=== PATIENT | female | born 1990 | race Caucasian/White ===

== ENCOUNTER 2017-06-21 09:32 | Emergency (ER) | payer BC ==
[2017-02-13 05:47] VITALS: Ht 154.9 cm; Wt 102.5 kg
[~2017-06-21] VITALS: Ht 154.9 cm; Wt 102.5 kg
[~2017-06-21 09:32] MED LIST: ACE3 PO; B12/1TAB3 PO; IBU800 PO; IBUP800T37 PO; LOR5/325 PO; MECL25TA9 PO; MULT-865 PO; NO RTN MEDS; OMEP-125 PO; ONDA4TAB PO; PREN-127 PO; ZPACK
[2017-06-21] MEDS ORDERED: NS(*) 0.9% 1000 ML BAG 1,000 ML IV ONE (09:58)
--- NOTE | 2017-06-21 09:58 | ER Report ---
History and Physical Time Seen By MD: 09:57 Hx. of Stated Complaint: uti x 4 months. today has lower back pain, abd pain, nausea HPI/ROS CHIEF COMPLAINT: Back pain HISTORY OF PRESENT ILLNESS: Bilateral lower back pain 4 months states she has been treated for UTI with 4 different antibiotics is unsure if it resolved feeling of incomplete evacuation of urine. No hematuria. Occasional flank pain bilateral abdominal pain no prior kidney stones. She is and is having problems with her lower back and abdomen since delivery of the baby this is her 2nd vaginal delivery. REVIEW OF SYSTEMS: Constitutional: No fever, no chills. Eyes: No discharge. ENT: No sore throat. Cardiovascular: No chest pain, no palpitations. Respiratory: No cough, no shortness of breath. Gastrointestinal: No abdominal pain, no vomiting. Genitourinary: No hematuria. Musculoskeletal: No back pain. Skin: No rashes. Neurological: No headache. Allergies: Coded Allergies: No Known Drug Allergies (Verified , 06/21/17) Home Meds Discontinued Reported Medications B12/Levomefolate Calcium/B-6 (FOLBIC RF TABLET) 1 Each Tablet, 800 EACH PO DAILY 04/19/17 Hx Smoking: No Smoking Status: Never Smoker Exposure to Second Hand Smoke?: No Hx Substance Use Disorder: No Hx Alcohol Use: Yes (OCC) Constitutional Vital Sign - Last 24 Hours 06/21/17 06/21/17 06/21/17 06/21/17 09:43 09:48 09:52 10:00 Temp 97.6 Pulse 69 62 Resp 14 B/P (MAP) 103/64 103/64 (77) 97/64 (75) Pulse Ox 95 95 O2 Delivery Room Air 06/21/17 06/21/17 06/21/17 06/21/17 10:02 10:12 10:22 10:30 Pulse 57 60 67 B/P (MAP) 124/68 (86) Pulse Ox 94 94 94 06/21/17 06/21/17 06/21/17 06/21/17 10:32 10:37 11:00 11:30 Pulse 54 63 B/P (MAP) 117/80 (92) 114/77 (89) Pulse Ox 94 94 06/21/17 06/21/17 12:00 12:07 Pulse 55 B/P (MAP) 112/71 (85) Pulse Ox 93 Intake and Output 06/21/17 06/21/17 06/22/17 15:00 23:00 07:00 Intake Total 1000 ml Balance 1000 ml Physical Exam General Appearance: The patient is alert, has no immediate need for airway protection and no signs of toxicity. Not ill-appearing does not appear intoxicated Eyes: Pupils equal and round no pallor or injection. ENT, Mouth: Mucous membranes are moist. Respiratory: There are no retractions, lungs are clear to auscultation. Cardiovascular: Regular rate and rhythm. No murmurs gallops or rubs Gastrointestinal: Abdomen is soft and non tender, no masses, bowel sounds normal. No CVA tenderness bilaterally Neurological: Normal exam Skin: Warm and dry, no rashes. Musculoskeletal: Neck is supple non tender. Lumbosacral muscles are firm and mildly tender to palpation Extremities are nontender, nonswollen and have full range of motion. No edema DIFFERENTIAL DIAGNOSIS: After history and physical exam differential diagnosis was considered for retained kidney stone lumbosacral strain lumbosacral syndrome muscle spasm dehydration I disturbance no signs of sciatica radiculopathy no signs of acute back trauma or disc disease Medical Decision Making Data Points Result Diagram: 06/21/17 1023 06/21/17 1023 Laboratory Hematology Test 06/21/17 09:44 06/21/17 10:23 Urine Color Yellow Urine Clarity Clear Urine pH 6.0 pH (4.8-9.5) Urine Specific [place] 1.015 Urine Protein Negative mg/dL (NEGATIVE) Urine Glucose (UA) Negative mg/dL (NEGATIVE) Urine Ketones Negative mg/dL (NEGATIVE) Urine Blood Large (NEGATIVE) Urine Nitrite Negative (NEGATIVE) Urine Bilirubin Negative (NEGATIVE) Urine Urobilinogen Negative mg/dL (0.2-1.9) Urine Leukocyte Esterase Negative (NEGATIVE) Urine RBC 4 /HPF (0-2/HPF) Urine WBC <1 /HPF (0-5/HPF) Urine Squamous Epithelial Cells Many /LPF (</=FEW) Urine Bacteria Negative /HPF (NONE-FEW) Urine Mucus None /HPF (NONE-FEW) Red Blood Count 5.62 M/uL (4.17-5.56) Mean Corpuscular Volume 78.2 fL (80.0-96.0) Mean Corpuscular Hemoglobin 25.8 pg (26.0-33.0) Mean Corpuscular Hemoglobin Concent 33.0 g/dL (32.0-36.0) Red Cell Distribution Width 13.8 % (11.5-14.5) Mean Platelet Volume 7.0 fL (7.2-11.1) Neutrophils (%) (Auto) 51.3 % (39.4-72.5) Lymphocytes (%) (Auto) 27.7 % (17.6-49.6) Monocytes (%) (Auto) 8.2 % (4.1-12.4) Eosinophils (%) (Auto) 10.0 % (0.4-6.7) Basophils (%) (Auto) 2.8 % (0.3-1.4) Nucleated RBC Relative Count (auto) 0.0 /100WBC Neutrophils # (Auto) 3.0 K/uL (2.0-7.4) Lymphocytes # (Auto) 1.6 K/uL (1.3-3.6) Monocytes # (Auto) 0.5 K/uL (0.3-1.0) Eosinophils # (Auto) 0.6 K/uL (0.0-0.5) Basophils # (Auto) 0.2 K/uL (0.0-0.1) Nucleated RBC Absolute Count (auto) 0.00 K/uL Sodium Level 141 mmol/L (137-145) Potassium Level 4.1 mmol/L (3.5-5.0) Chloride Level 103 mmol/L (98-107) Carbon Dioxide Level 26 mmol/L (22-31) Blood Urea Nitrogen 11 mg/dl (7-18) Creatinine 0.90 mg/dl (0.52-1.04) Glomerular Filtration Rate Calc > 60.0 Random Glucose 81 mg/dl (75-110) Calcium Level 9.1 mg/dl (8.4-10.2) Total Bilirubin 0.6 mg/dl (0.2-1.3) Aspartate Amino Transf (AST/SGOT) 27 U/L (0-35) Alanine Aminotransferase (ALT/SGPT) 40 U/L (0-56) Alkaline Phosphatase 104 U/L (0-126) Total Protein 7.6 gm/dl (6.3-8.2) Albumin 4.0 g/dl (3.5-5.0) Lipase 53 U/L (23-300) Human Chorionic Gonadotropin, Qual Negative (NEGATIVE) Chemistry Test 06/21/17 09:44 06/21/17 10:23 Urine Color Yellow Urine Clarity Clear Urine pH 6.0 pH (4.8-9.5) Urine Specific [place] 1.015 Urine Protein Negative mg/dL (NEGATIVE) Urine Glucose (UA) Negative mg/dL (NEGATIVE) Urine Ketones Negative mg/dL (NEGATIVE) Urine Blood Large (NEGATIVE) Urine Nitrite Negative (NEGATIVE) Urine Bilirubin Negative (NEGATIVE) Urine Urobilinogen Negative mg/dL (0.2-1.9) Urine Leukocyte Esterase Negative (NEGATIVE) Urine RBC 4 /HPF (0-2/HPF) Urine WBC <1 /HPF (0-5/HPF) Urine Squamous Epithelial Cells Many /LPF (</=FEW) Urine Bacteria Negative /HPF (NONE-FEW) Urine Mucus None /HPF (NONE-FEW) White Blood Count 5.9 k/uL (4.5-11.0) Red Blood Count 5.62 M/uL (4.17-5.56) Hemoglobin 14.5 g/dL (12.0-16.0) Hematocrit 44.0 % (34.0-47.0) Mean Corpuscular Volume 78.2 fL (80.0-96.0) Mean Corpuscular Hemoglobin 25.8 pg (26.0-33.0) Mean Corpuscular Hemoglobin Concent 33.0 g/dL (32.0-36.0) Red Cell Distribution Width 13.8 % (11.5-14.5) Platelet Count 355 K/uL (150-450) Mean Platelet Volume 7.0 fL (7.2-11.1) Neutrophils (%) (Auto) 51.3 % (39.4-72.5) Lymphocytes (%) (Auto) 27.7 % (17.6-49.6) Monocytes (%) (Auto) 8.2 % (4.1-12.4) Eosinophils (%) (Auto) 10.0 % (0.4-6.7) Basophils (%) (Auto) 2.8 % (0.3-1.4) Nucleated RBC Relative Count (auto) 0.0 /100WBC Neutrophils # (Auto) 3.0 K/uL (2.0-7.4) Lymphocytes # (Auto) 1.6 K/uL (1.3-3.6) Monocytes # (Auto) 0.5 K/uL (0.3-1.0) Eosinophils # (Auto) 0.6 K/uL (0.0-0.5) Basophils # (Auto) 0.2 K/uL (0.0-0.1) Nucleated RBC Absolute Count (auto) 0.00 K/uL Glomerular Filtration Rate Calc > 60.0 Calcium Level 9.1 mg/dl (8.4-10.2) Total Bilirubin 0.6 mg/dl (0.2-1.3) Aspartate Amino Transf (AST/SGOT) 27 U/L (0-35) Alanine Aminotransferase (ALT/SGPT) 40 U/L (0-56) Alkaline Phosphatase 104 U/L (0-126) Total Protein 7.6 gm/dl (6.3-8.2) Albumin 4.0 g/dl (3.5-5.0) Lipase 53 U/L (23-300) Human Chorionic Gonadotropin, Qual Negative (NEGATIVE) Urinalysis Test 06/21/17 09:44 Urine Color Yellow Urine Clarity Clear Urine pH 6.0 pH (4.8-9.5) Urine Specific [place] 1.015 Urine Protein Negative mg/dL (NEGATIVE) Urine Glucose (UA) Negative mg/dL (NEGATIVE) Urine Ketones Negative mg/dL (NEGATIVE) Urine Blood Large (NEGATIVE) Urine Nitrite Negative (NEGATIVE) Urine Bilirubin Negative (NEGATIVE) Urine Urobilinogen Negative mg/dL (0.2-1.9) Urine Leukocyte Esterase Negative (NEGATIVE) Urine RBC 4 /HPF (0-2/HPF) Urine WBC <1 /HPF (0-5/HPF) Urine Squamous Epithelial Cells Many /LPF (</=FEW) Urine Bacteria Negative /HPF (NONE-FEW) Urine Mucus None /HPF (NONE-FEW) EKG/Imaging Imaging Negative CT abdomen and pelvis results discussed with the patient and all questions answered and understood. Post void residual 200 mL's by bladder scan. ED Course/Re-evaluation ED Course Plan care agreed-upon prior to orders placed Re-evaluation The time stamp all results discussed all questions answered and understood, noconcerns or complaints at this time. Home care follow-up and reasons to return discussed Decision to Disposition Date: Jun 21, 2017 Decision to Disposition Time: 12:40 Depart Departure Latest Vital Signs Vital Signs Date Time Temp Pulse Resp B/P (MAP) Pulse Ox O2 Delivery O2 Flow Rate FiO2 06/21/17 12:07 55 93 06/21/17 12:00 112/71 (85) 06/21/17 09:43 97.6 14 Room Air Impression: Primary Impression: Lumbar muscle pain Condition: Improved Disposition: HOME OR SELF-CARE New Scripts Ibuprofen (IBUPROFEN) 800 Mg Tablet 1 TAB PO Q8H for PAIN for 7 Days, #20 TAB Prov: CONOR SHARMA MD 06/21/17 Cyclobenzaprine Hcl (CYCLOBENZAPRINE HCL) 10 Mg Tablet 10 MG PO Q8H Y for MUSCLE SPASMS, #20 TAB 0 Refills Prov: CONOR SHARMA MD 06/21/17 Patient Instructions: Acute Low Back Pain (ED) CONOR SHARMA MD Jun 21, 2017 09:57
[2017-06-21 10:41] LABS: PLATELET COUNT, AUTOMATED 355 K/uL (150-450)
--- NOTE | 2017-06-21 11:41 | RADIOLOGY IMAGING REPORT ---
FACILITY: [facility] PATIENT NAME: Jaja Restrepo : 1990 MR: [id number] V: [id number] EXAM DATE: ORDERING PHYSICIAN: CONOR SHARMA TECHNOLOGIST: Location[place] [facility] [place] Patient: Jaja Restrepo : 1990 Visit/Account:[id number] Date of Sevice: 06/21/2017 ABDOMEN/PELVIS W/O CONTRAST HISTORY: renal stone TECHNIQUE: Axial images were obtained through the abdomen and pelvis without intravenous contrast . One of the following dose optimization techniques was utilized in the performance of this exam: autom ated exposure control; adjustment of the mA and/or kv according to patient size; or use of iterative reconstruction technique. Specific details can be referenced in the facility's radiology CT exam oper ational policy. CONTRAST: None COMPARISON: None. FINDINGS: Visualized lung bases: Negative. Hepatobiliary: Negative. Spleen: Negative. Adrenals: Negative. Pancreas: Negative. Kidneys/ureters/bladder: No radiopaque urinary tract calculus. No hydronephrosis. Bowel/peritoneum/mesentery: Normal appendix. Vessels: Negative. Lymph nodes: Negative. Pelvic genitourinary: Negative. Bones/body wall: Negative. Other findings: None significant IMPRESSION: 1. Negative for a radiopaque urinary tract calculus or hydronephrosis. 2. Normal appendix. No other acute inflammatory process identified. Report Dictated By: Washington Goldman MD at 06/21/2017 11:34 AM Report E-Signed By: Washington Goldman MD at 06/21/2017 11:36 AM [id number]
[2017-06-21 12:32] VITALS: BP 122/84
[2017-06-21] MEDS ORDERED: CYCL10TA29 PO (12:43)
[2017-06-21] MEDS ORDERED: IBUP800T37 PO (12:43)
== END 2017-06-21 12:57 | disposition home or self-care (01) ==
LOC: ER 09:33
DX: M79.1 Myalgia (principal)
CPT/HCPCS: 74176; 81001; 83690; 84703; 85025; 87088; 96360; 96361; 99284; J7030; 82040; 82247; 82310; 82374; 82435; 82565; 82947; 84075; 84132; 84155; 84295; 84450; 84460; 84520

== ENCOUNTER → 2017-06-28 | Outpatient (CLI) | payer BC ==
[2017-02-13 05:47] VITALS: BMI 46.5
[~2017-06-28] MED LIST changes: +CYCL10TA29 PO; +SINCALIDE 5 MCG VIAL INJ ONE; +WATER STERILE(*) 10 ML VIAL 10 ML ONE
--- NOTE | 2017-06-28 17:43 | RADIOLOGY IMAGING REPORT ---
FACILITY: [facility] PATIENT NAME: Jaja Restrepo : 1990 MR: [id number] V: [id number] EXAM DATE: ORDERING PHYSICIAN: MILLI ESQUEDA TECHNOLOGIST: [facility] Patient: Jaja Restrepo : 1990 Visit/Account:[id number] Date of Sevice: 06/28/2017 HIDA W/CCK Indication: 27-year-old female with right upper quadrant pain. Evaluate gallbladder. Comparison studies: CT of the abdomen from June 21, 2017. Procedure: Following the intravenous injection of technetium 99m labeled mebrofenin 0.8 mCi imaging w as performed over the abdomen for 46 minutes. Afterwards the patient was injected with 4.2 micrograms of intravenous CCK and the gallbladder ejection fraction was calculated in standard fashion. Findings: After 2 minutes there was clearance of radioisotope from the blood stream. After 10 minutes there was activity in the biliary system. After 15 minutes there is activity in the bowel. After 32 minutes there was activity in the gallbladder. The gallbladder ejection fraction is 96 %. The injection of CCK did reproduce symptoms of nausea. IMPRESSION: 1. There is mildly delayed uptake of radioisotope by the gallbladder but there is normal biliary excr etion and emptying into the bowel. 2. The gallbladder ejection fraction was calculated to be 96% 12 minutes after the injection of CCK 4 .2 mCi. This ejection fraction may be considered high and could be suggestive of biliary dyskinesia. Report Dictated By: Chau Hanley MD at 06/28/2017 5:34 PM Report E-Signed By: Chau Hanley MD at 06/28/2017 5:40 PM [id number]
== END ==
LOC: NUC 08:03
PROVIDERS: ATTEND Nurse Practitioner Family
DX: R10.9 Unspecified abdominal pain (principal); R11.0 Nausea
CPT/HCPCS: 78226; A4216; A9537; J2805

== ENCOUNTER 2017-07-03 22:28 | Emergency (ER) | payer BC ==
[2017-02-13 05:47] VITALS: Wt 104.3 kg
[~2017-07-03 22:28] MED LIST changes: -SINCALIDE 5 MCG VIAL INJ ONE; -WATER STERILE(*) 10 ML VIAL 10 ML ONE
[2017-07-03] MEDS ORDERED: ONDA4TAB97 PO (22:40)
[2017-07-03] MEDS ORDERED: PROTANDEM (22:40)
--- NOTE | 2017-07-03 22:43 | ER Report ---
History and Physical Time Seen By MD: 22:37 Hx. of Stated Complaint: back pain past 4 months worse tonight and abdominal pain and nausea HPI/ROS CHIEF COMPLAINT: Back pain HISTORY OF PRESENT ILLNESS: 27-year-old female presents to the ER complaining of severe back pain. She is also complaining of abdominal pain. She was seen here approximately 10 days ago. She had a CT scan of her abdomen and pelvis which was unremarkable. She was discharged home on ibuprofen and cyclobenzaprine. Patient returns tonight with worsening back pain and abdominal pain. She has a variety of symptoms. She denies fevers. Patient is 4 months with her 2nd child. Patient thinks her chronic back pain may be from the epidural. She received. Apparently there was some pulling of the catheter for some reason. She is worried that something may have been damaged in her spine and back. She notes no radiation of the pain to her legs. She denies incontinence. Patient notes nausea and vomiting. She denies diarrhea or dysuria. REVIEW OF SYSTEMS: Respiratory: No cough, no dyspnea. Cardiovascular: No chest pain, no palpitations. Gastrointestinal: No vomiting, no abdominal pain. Musculoskeletal: As above Allergies: Coded Allergies: No Known Drug Allergies (Verified , 06/21/17) Home Meds Active Scripts Promethazine Hcl (PROMETHAZINE HCL) 25 Mg Tablet, 25 MG PO Q4H Y for NAUSEA/ VOMITING, #14 TAB Prov:SOL CASTRO DO 07/04/17 Oxycodone Hcl/Acetaminophen (PERCOCET 5-325 MG TABLET) 1 Each Tablet, 1 EACH PO Q4-6H Y for PAIN, #10 Prov:SOL CASTRO DO 07/04/17 Ibuprofen (IBUPROFEN) 800 Mg Tablet, 1 TAB PO Q8H for PAIN for 7 Days, #20 TAB Prov:CONOR SHARMA MD 06/21/17 Cyclobenzaprine Hcl (CYCLOBENZAPRINE HCL) 10 Mg Tablet, 10 MG PO Q8H Y for MUSCLE SPASMS, #20 TAB 0 Refills Prov:CONOR SHARMA MD 06/21/17 Reported Medications [protandem] No Conflict Check 07/03/17 Ondansetron Hcl (ZOFRAN) 4 Mg Tablet, 4 MG PO Q12H, TAB 07/03/17 Reviewed Nurses Notes: Yes Old Medical Records Reviewed: Yes Hx Smoking: No Smoking Status: Never Smoker Exposure to Second Hand Smoke?: No Hx Substance Use Disorder: No Hx Alcohol Use: Yes (OCC) Constitutional Vital Sign - Last 24 Hours 07/03/17 07/03/17 07/03/17 07/03/17 22:28 22:33 22:34 22:43 Temp 97.2 Pulse ??? 72 63 Resp 18 B/P (MAP) 133/76 133/76 (95) Pulse Ox 94 94 O2 Delivery Room Air 07/03/17 07/03/17 07/03/17 07/03/17 22:58 23:00 23:13 23:28 Pulse 66 53 59 B/P (MAP) 125/85 (98) Pulse Ox 92 98 95 07/03/17 07/03/17 07/03/17 07/04/17 23:30 23:35 23:50 00:00 Pulse 63 66 B/P (MAP) 113/76 (88) 108/62 (77) Pulse Ox 96 95 07/04/17 07/04/17 00:05 00:20 Pulse 62 56 Pulse Ox 96 97 Physical Exam Vital signs stable, afebrile, pulse ox normal General Appearance: The patient is alert, has no immediate need for airway protection and no current signs of toxicity. Skin warm, dry, pink, moderate distress HEENT: Pupils equal and round no injection. Oropharynx without redness or exudate, mucous members are moist Respiratory: Chest is non tender, lungs are clear to auscultation. No chest wall tenderness Cardiac: regular rate and rhythm Gastrointestinal: Abdomen is soft and non tender, no masses, bowel sounds normal. Musculoskeletal: Neck: Neck is supple and non tender. Back: There is no CVA tenderness. There is no tenderness in the midline of the lumbar spine. There is tenderness in the lumbar paraspinous musculature in the upper area of the lumbar region Extremities have full range of motion and are non tender. Negative straight- leg raise bilaterally, no edema Skin: No rashes or lesions. DIFFERENTIAL DIAGNOSIS: After history and physical exam differential diagnosis was considered for back pain including but not limited to muscular pain, herniated disc, spine fracture, intra-abdominal causes and urinary tract infection. Additionally,abdominal pain including but not limited to appendicitis, cholecystitis, gastritis and urinary tract infection. Medical Decision Making Data Points Result Diagram: 07/03/17224107/03/172241 Laboratory Hematology Test 07/03/17 22:32 07/03/17 22:42 Urine Color Yellow Urine Clarity Clear Urine pH 7.0 pH (4.8-9.5) Urine Specific [place] 1.013 Urine Protein Negative mg/dL (NEGATIVE) Urine Glucose (UA) Negative mg/dL (NEGATIVE) Urine Ketones Negative mg/dL (NEGATIVE) Urine Blood Small (NEGATIVE) Urine Nitrite Negative (NEGATIVE) Urine Bilirubin Negative (NEGATIVE) Urine Urobilinogen Negative mg/dL (0.2-1.9) Urine Leukocyte Esterase Trace (NEGATIVE) Urine RBC <1 /HPF (0-2/HPF) Urine WBC 1 /HPF (0-5/HPF) Urine Squamous Epithelial Cells Many /LPF (</=FEW) Urine Bacteria Few /HPF (NONE-FEW) Urine Mucus None /HPF (NONE-FEW) Red Blood Count 6.03 M/uL (4.17-5.56) Mean Corpuscular Volume 76.7 fL (80.0-96.0) Mean Corpuscular Hemoglobin 25.8 pg (26.0-33.0) Mean Corpuscular Hemoglobin Concent 33.7 g/dL (32.0-36.0) Red Cell Distribution Width 13.3 % (11.5-14.5) Mean Platelet Volume 7.1 fL (7.2-11.1) Neutrophils (%) (Auto) 48.1 % (39.4-72.5) Lymphocytes (%) (Auto) 37.3 % (17.6-49.6) Monocytes (%) (Auto) 8.2 % (4.1-12.4) Eosinophils (%) (Auto) 5.6 % (0.4-6.7) Basophils (%) (Auto) 0.8 % (0.3-1.4) Nucleated RBC Relative Count (auto) 0.0 /100WBC Neutrophils # (Auto) 4.0 K/uL (2.0-7.4) Lymphocytes # (Auto) 3.1 K/uL (1.3-3.6) Monocytes # (Auto) 0.7 K/uL (0.3-1.0) Eosinophils # (Auto) 0.5 K/uL (0.0-0.5) Basophils # (Auto) 0.1 K/uL (0.0-0.1) Nucleated RBC Absolute Count (auto) 0.00 K/uL Erythrocyte Sedimentation Rate 5 mm/HOUR (0-20) Sodium Level 135 mmol/L (137-145) Potassium Level 4.0 mmol/L (3.5-5.0) Chloride Level 97 mmol/L (98-107) Carbon Dioxide Level 29 mmol/L (22-31) Blood Urea Nitrogen 14 mg/dl (7-18) Creatinine 1.00 mg/dl (0.52-1.04) Glomerular Filtration Rate Calc > 60.0 Random Glucose 95 mg/dl (75-110) Calcium Level 9.1 mg/dl (8.4-10.2) Total Bilirubin 0.6 mg/dl (0.2-1.3) Aspartate Amino Transf (AST/SGOT) 21 U/L (0-35) Alanine Aminotransferase (ALT/SGPT) 35 U/L (0-56) Alkaline Phosphatase 122 U/L (0-126) C-Reactive Protein < 0.5 mg/dl (<1.0) Total Protein 7.7 gm/dl (6.3-8.2) Albumin 4.0 g/dl (3.5-5.0) Thyroid Stimulating Hormone (TSH) 4.80 uIU/ml (0.46-4.68) Chemistry Test 07/03/17 22:32 07/03/17 22:42 Urine Color Yellow Urine Clarity Clear Urine pH 7.0 pH (4.8-9.5) Urine Specific [place] 1.013 Urine Protein Negative mg/dL (NEGATIVE) Urine Glucose (UA) Negative mg/dL (NEGATIVE) Urine Ketones Negative mg/dL (NEGATIVE) Urine Blood Small (NEGATIVE) Urine Nitrite Negative (NEGATIVE) Urine Bilirubin Negative (NEGATIVE) Urine Urobilinogen Negative mg/dL (0.2-1.9) Urine Leukocyte Esterase Trace (NEGATIVE) Urine RBC <1 /HPF (0-2/HPF) Urine WBC 1 /HPF (0-5/HPF) Urine Squamous Epithelial Cells Many /LPF (</=FEW) Urine Bacteria Few /HPF (NONE-FEW) Urine Mucus None /HPF (NONE-FEW) White Blood Count 8.4 k/uL (4.5-11.0) Red Blood Count 6.03 M/uL (4.17-5.56) Hemoglobin 15.6 g/dL (12.0-16.0) Hematocrit 46.2 % (34.0-47.0) Mean Corpuscular Volume 76.7 fL (80.0-96.0) Mean Corpuscular Hemoglobin 25.8 pg (26.0-33.0) Mean Corpuscular Hemoglobin Concent 33.7 g/dL (32.0-36.0) Red Cell Distribution Width 13.3 % (11.5-14.5) Platelet Count 328 K/uL (150-450) Mean Platelet Volume 7.1 fL (7.2-11.1) Neutrophils (%) (Auto) 48.1 % (39.4-72.5) Lymphocytes (%) (Auto) 37.3 % (17.6-49.6) Monocytes (%) (Auto) 8.2 % (4.1-12.4) Eosinophils (%) (Auto) 5.6 % (0.4-6.7) Basophils (%) (Auto) 0.8 % (0.3-1.4) Nucleated RBC Relative Count (auto) 0.0 /100WBC Neutrophils # (Auto) 4.0 K/uL (2.0-7.4) Lymphocytes # (Auto) 3.1 K/uL (1.3-3.6) Monocytes # (Auto) 0.7 K/uL (0.3-1.0) Eosinophils # (Auto) 0.5 K/uL (0.0-0.5) Basophils # (Auto) 0.1 K/uL (0.0-0.1) Nucleated RBC Absolute Count (auto) 0.00 K/uL Erythrocyte Sedimentation Rate 5 mm/HOUR (0-20) Glomerular Filtration Rate Calc > 60.0 Calcium Level 9.1 mg/dl (8.4-10.2) Total Bilirubin 0.6 mg/dl (0.2-1.3) Aspartate Amino Transf (AST/SGOT) 21 U/L (0-35) Alanine Aminotransferase (ALT/SGPT) 35 U/L (0-56) Alkaline Phosphatase 122 U/L (0-126) C-Reactive Protein < 0.5 mg/dl (<1.0) Total Protein 7.7 gm/dl (6.3-8.2) Albumin 4.0 g/dl (3.5-5.0) Thyroid Stimulating Hormone (TSH) 4.80 uIU/ml (0.46-4.68) Urinalysis Test 07/03/17 22:32 Urine Color Yellow Urine Clarity Clear Urine pH 7.0 pH (4.8-9.5) Urine Specific [place] 1.013 Urine Protein Negative mg/dL (NEGATIVE) Urine Glucose (UA) Negative mg/dL (NEGATIVE) Urine Ketones Negative mg/dL (NEGATIVE) Urine Blood Small (NEGATIVE) Urine Nitrite Negative (NEGATIVE) Urine Bilirubin Negative (NEGATIVE) Urine Urobilinogen Negative mg/dL (0.2-1.9) Urine Leukocyte Esterase Trace (NEGATIVE) Urine RBC <1 /HPF (0-2/HPF) Urine WBC 1 /HPF (0-5/HPF) Urine Squamous Epithelial Cells Many /LPF (</=FEW) Urine Bacteria Few /HPF (NONE-FEW) Urine Mucus None /HPF (NONE-FEW) ED Course/Re-evaluation Clinical Indication for ER IV: Hydration, IV Access ED Course Patient was admitted to an examination room. H&P was done. The differential diagnoses was considered. On clinical examination. Patient has lack of significant clinical findings. Her overall affect seems depression in nature. I suspect the back pain is from carrying her 4-month-old infant around in [place] for her other child. She did have a mild rash on her face and I was suspicious she might have lupus. Her sedimentation rate and CRP were normal. Her white count was unremarkable. Laboratory studies for the abdomen were unremarkable. Urinalysis shows no infection or hematuria. test was negative. Patient improved with IV fluid hydration, Toradol, fentanyl and Zofran. Patient advised to follow-up with primary care physician who can evaluate her for numerous other etiologies and treat her for depression. Patient was given a prescription for Phenergan to control her nausea since. Zofran did not seem to be working. Patient was given a limited supply of Percocet for temporary pain relief She was referred to the internal medicine group. Decision to Disposition Date: Jul 04, 2017 Decision to Disposition Time: 00:11 Depart Departure Latest Vital Signs Vital Signs Date Time Temp Pulse Resp B/P (MAP) Pulse Ox O2 Delivery O2 Flow Rate FiO2 07/04/17 00:20 56 97 07/04/17 00:00 108/62 (77) 07/03/17 22:33 97.2 18 Room Air Impression: Primary Impression: Back pain Additional Impression: Nausea Condition: Improved Disposition: HOME OR SELF-CARE Referrals: YUDY PITTS MD, FARRUKH MD New Scripts Promethazine Hcl (PROMETHAZINE HCL) 25 Mg Tablet 25 MG PO Q4H Y for NAUSEA/VOMITING, #14 TAB Prov: SOL CASTRO DO 07/04/17 Oxycodone Hcl/Acetaminophen (PERCOCET 5-325 MG TABLET) 1 Each Tablet 1 EACH PO Q4-6H Y for PAIN, #10 Prov: SOL CASTRO DO 07/04/17 Patient Instructions: Chronic Back Pain (ED) Additional Instructions: Follow-up with Dr. Pitts within one week Problem Qualifiers Primary Impression: Back pain Back pain location: low back pain Chronicity: chronic Back pain laterality : unspecified Sciatica presence: without sciatica Qualified Codes: M54.5 - Low back pain; G89.29 - Other chronic pain SOL CASTRO DO Jul 03, 2017 22:43
[2017-07-03] MEDS ORDERED: NS(*) 0.9% 1000 ML BAG 1,000 ML IV ONE (22:51)
[2017-07-03] MEDS ORDERED: KETOROLAC 30 MG/ML VIAL IVP ONE (22:55)
[2017-07-03] MEDS ORDERED: PROMETHAZINE 25 MG/ML 1 ML AMP IVP ONE (22:55)
[2017-07-03] MEDS ORDERED: fentaNYL CITR 100 MCG/2 ML AMP IVP ONE (22:55)
[2017-07-03 22:58] LABS: PLATELET COUNT, AUTOMATED 328 K/uL (150-450)
[2017-07-04] VITALS: BP 108/62
[2017-07-04] MEDS ORDERED: OXYC-865 PO (00:17)
[2017-07-04] MEDS ORDERED: PROM-110 PO (00:17)
[2017-07-04] MEDS ORDERED: oxyCODONE/ACETAMIN 5/325MG TH 2 TAB/BOTTLE PO ONE (00:20)
[2017-07-04] MEDS ORDERED: PROMETHAZINE HCL 25 MG TAB TH 2 TAB/BOTTLE PO ONE (00:20)
== END 2017-07-04 00:32 | disposition home or self-care (01) ==
LOC: ER 22:54
DX: M54.5 Low back pain (principal); R11.0 Nausea
CPT/HCPCS: 81001; 84443; 85025; 85651; 86140; 96361; 96374; 96375; 99284; J1885; J2550; J3010; J7030; 82040; 82247; 82310; 82374; 82435; 82565; 82947; 84075; 84132; 84155; 84295; 84450; 84460; 84520

== ENCOUNTER → 2017-07-09 | Outpatient (CLI) | payer BC ==
[2017-02-13 05:47] VITALS: BMI 46.5
[~2017-07-09] MED LIST changes: +ALBU8.5H IH; +DIPH0.5D12 IM; +ONDA4TAB97 PO; +OXYC-865 PO; +PNEU0.5D3 IM; +PROM-110 PO; +PROTANDEM; +TRET20CR37 TP
--- NOTE | 2017-07-09 15:13 | RADIOLOGY IMAGING REPORT ---
FACILITY: [facility] PATIENT NAME: Jaja Restrepo : 1990 MR: [id number] V: [id number] EXAM DATE: ORDERING PHYSICIAN: YUDY PITTS TECHNOLOG[place]: [place] [facility] [place]aja Rest[place] : 1990 Visit/Account:[id number] Date of Sevice: 07/09/2017 Chest with lateral, two views. HISTORY: Hypoxia. COMPARISON: None. The patient's head is rotated to the left on the frontal view. Mild bronchial thickening is present bilaterally. The heart and mediastinum are unremarkable. Pulmonary vessels are unremarkable. The l ungs are otherwise clear. The pleural surfaces are unremarkable. No pneumothorax. No acute bony abno rmalities. IMPRESSION: Mild bronchial thickening. Otherwise no evidence of acute cardiopulmonary disease. Report Dictated By: Luc Jack MD at 07/09/2017 3:07 PM Report E-Signed By: Luc Jack MD at 07/09/2017 3:09 PM [id number]
== END ==
LOC: LAB 13:37
PROVIDERS: ATTEND Emergency Medicine
DX: R91.8 Other nonspecific abnormal finding of lung field (principal)
CPT/HCPCS: 36415; 71046; 83540; 83550; 84439; 84443; 84481; 86140

== ENCOUNTER 2017-07-31 09:45 | Outpatient (RCR) | payer BC ==
[2017-02-13 05:47] VITALS: BMI 46.5
--- NOTE | 2017-07-17 14:53 | PT INITIAL EVALUATION ---
MEDICAL DIAGNOSIS: back pain TREATMENT DIAGNOSIS: same, back pain with radiating pain DATE OF ONSET: 05/05/17 SUBJECTIVE: Jaja Restrepo presents to physical therapy with complaints of low back pain that started 4-5 months ago following the delivery of her 2nd child. She reports that she believed that it correlated to her delivery, however, she reports that the low back pain is getting worse and worse. Furthermore, she reports that when the pain becomes really bad is spreads from her low back and wraps around causing abdominal pain. Today, she reports the pain to be 0/ 10. She reports that when the pain comes it is very painful and rates it to be from 3-10/10. She reports that the pain is really random and does not have a pattern. She reports that the pain is better with hot water and reports the pain to be worse with bending, standing, and lying. He denies increased pain with coughing, sneezing, or straining. She denies unexplained weight loss. She denies recent accident, surgery (on back), or recent changes in bowel or bladder. However, she does report night pain. She reports that she has poor posture and she states that the pain does not seem to change with better posture. She denies any numbness or tingling or any drastic changes in strength since the low back pain started. Pain location is L3-5 facet joints. Pain scale is 0 on a ten point pain scale. REHAB PROBLEM LIST: Increased Pain Decreased ROM Decreased Strength Decreased Endurance Decreased Function PREVIOUS MEDICAL HISTORY: See EMR OCCUPATION: Homemaker OBJECTIVE: Posture: She demonstrated forward head, B rounded shoulders, and increased thoracic kyphosis. She does not appear to have a lateral shift. ROM: Trunk AROM: flexion: NIL with muscular end feel, extension: minimal restriction with painful end feel, side gliding R: minimal restriction with muscular end feel, side gliding L: NIL with muscular end feel. Palpation: TTP: L3-5 facet joints Sensation: Intact Special Tests: Repeated extension in standing: muscular stretch during the test and feels about the same following the test. Repeated flexion in lying and then sitting: muscular stretch during the test and feels worse following testing with increased low back pain with L sidegliding. Repeated extension in lying: muscular stretch during the test and feels better following the test. Mobility: Independent Gait: No gait mechanics identified ASSESSMENT: Jaja will benefit from skilled physical therapy addressing the listed impairments to improve function and QOL. Based on the examination, it appears that her signs and symptoms are consistent with the provisional classification of posterior derangement that responded well to extension based principles. Short Term Goals 1 week: Pt will demonstrate centralized low back pain to improve function and QOL. 3 weeks: Pt will demonstrate abolished low back pain to improve function and QOL. 4 weeks: Pt will demonstrate a return to prior level of function and a recovery of all function to improve QOL. Patient's Goals reduce low back pain PLAN: Patient to be seen for Manual Therapy/STM/MET Strengthening/condition Range of Motion Spinal Stabilization Work Hardening/Cond Stretching Neuromuscular Re-ed Posture/Body mechanics Home Exercise Program Therapeutic Activities 2x/Week for 4 Weeks If you have any questions, comments, or concerns about this report or plan, please contact me at . Thank you, Simon Andre, PT, DPT JAZMINED
--- NOTE | 2017-07-31 15:24 | PT PLAN OF CARE ---
Physician: Barbra Gruber MD Patient is being seen: 2 visits Therapist: Simon Andre, PT, DPT Medical Diagnosis: back pain Treatment Diagnosis: same, back pain with radiating pain Date of Onset: 05/05/17 Date of Initial Evaluation: 07/17/17 Date patient was last seen: 07/31/17 Number of treatments: 2 Number of cancellations/No shows: 1 INTERVENTIONS: Manual Therapy/STM/MET Strengthening/condition Range of Motion Spinal Stabilization Work Hardening/Cond Stretching Neuromuscular Re-ed Posture/Body mechanics Home Exercise Program Therapeutic Activities GOALS: 1 week: Pt will demonstrate centralized low back pain to improve function and QOL. MET 3 weeks: Pt will demonstrate abolished low back pain to improve function and QOL. MET 4 weeks: Pt will demonstrate a return to prior level of function and a recovery of all function to improve QOL. MET PATIENT'S GOAL: reduce low back pain Status of Patient's Goals: MET Patient Compliance: Excellent Prognosis: Excellent Reasons for continuing therapy: This is a discharge note for Jaja Restrepo. She reports that she is doing well. She states that she has been performing her specific exercise with good results. She reports that she no longer has any low back pain with her daily life. Furthermore, she does report low back pain with washing dishes, however, if she performs her specific exercise during that time , the pain will abolish. Overall, she reports that she feels like she is 100% back to her normal. She demonstrated significant improvements with trunk AROM in all directions with normalized end feels. Furthermore, she demonstrated abolished low back pain with palpation and without palpation. Lastly, it reports that she has returned to prior level of function and is independent on how to prevent further reoccurrences and what to avoid to prevent further reoccurrences. Posture: She demonstrated forward head, B rounded shoulders, and increased thoracic kyphosis. She does not appear to have a lateral shift. ROM: Trunk AROM: flexion: NIL with muscular end feel, extension: NIL with muscular end feel, side gliding R: NIL with muscular end feel, side gliding L: NIL with muscular end feel. Palpation: No longer TTP Special Tests: Repeated extension in standing: muscular stretch during the test and feels about the same following the test. Repeated flexion in lying and then sitting: muscular stretch during the test and feels worse following testing with increased low back pain with L sidegliding. Repeated extension in lying: muscular stretch during the test and feels better following the test. Mobility: Independent If you have any questions, please contact me at [phone]. Thank you, Simon Andre PT, DPAbelino LUIS
== END 2017-07-31 18:00 | disposition home or self-care (01) ==
LOC: PT 09:45
PROVIDERS: ATTEND Emergency Medicine
DX: M54.5 Low back pain (principal); R10.9 Unspecified abdominal pain
CPT/HCPCS: 97161